=== PATIENT | female | born 1980 | race Hispanic/Latino ===

== ENCOUNTER 2022-06-13 20:29 | Emergency (ER) | payer OTHER ==
[~2022-06-13] VITALS: Ht 160 cm; Wt 71.7 kg
[2022-06-13 20:54] LABS: BASOPHILS % (AUTO) 0.3 % (0.0-5.0); EOSINOPHILS % (AUTO) 1.1 % (0.0-8.0); LYMPHOCYTES % (AUTO) 16.6 % (21.0-51.0); MEAN CORPUSCULAR HEMOGLOBIN 29.5 pg (27.0-33.0); MEAN CORPUSCULAR HGB CONC 35.2 g/dL (32.0-36.0); MEAN CORPUSCULAR VOLUME 83.7 fL (79-99); MONOCYTES % (AUTO) 6.9 % (3.0-13.0); NEUTROPHILS % (AUTO) 74.8 % (40.0-77.0); PLATELET COUNT (AUTO) 344 K/uL (130-400); RED BLOOD CELL COUNT(AUTO) 5.02 MIL/uL (4.00-5.50); RED CELL DISTRIBUTION WIDTH 11.9 % (11.0-15.5); WHITE BLOOD COUNT (AUTO) 16.4 K/uL (4.8-10.8)
[2022-06-13 20:55] LABS: APPEARANCE,URINE CLEAR (CLEAR); BILIRUBIN,URINE NEGATIVE (NEGATIVE); COLOR,URINE YELLOW (YELLOW); GLUCOSE, URINE (UA) 500 mg/dL (NEGATIVE); KETONES,URINE NEGATIVE (NEGATIVE); LEUKOCYTE ESTERASE ,URINE NEGATIVE (NEGATIVE); NITRATE,URINE NEGATIVE (NEGATIVE); OCCULT BLOOD,URINE NEGATIVE (NEGATIVE); PROTEIN,URINE NEGATIVE (NEGATIVE); UROBILINOGEN,URINE 0.2 mg/dL (0.2-1.0)
[2022-06-13 20:57] LABS: HCG,QUALITATIVE URINE NEGATIVE (NEGATIVE)
[2022-06-13 21:03] LABS: BACTERIA,URINE Few /HPF (None Seen); MUCUS,URINE Rare LPF (None Seen); RBC,URINE 0-1 /HPF (0-1); SQUAMOUS EPITHELIAL CELL,UR Few /HPF (0-2)
[2022-06-13 21:30] LABS: CREATININE 0.7 mg/dL (0.5-1.5); POTASSIUM 3.5 mmol/L (3.5-5.1)
[2022-06-13] MEDS ORDERED: LACTATED RINGERS 1000ML 1,000 ML IV ONE (21:30)
[2022-06-13] MEDS ORDERED: ONDANSETRON 4MG INJ IVP ONE (21:30)
[2022-06-13] MEDS ORDERED: MORPHINE 2 MG SYG IVP ONE (21:30)
[2022-06-13 21:35] LABS: TOTAL PROTEIN, SERUM 8.3 g/dL (6.0-8.3)
[2022-06-13] MEDS ORDERED: PROM25TA7 PO (23:24)
[2022-06-13] MEDS ORDERED: SULF1TAB42 PO (23:24)
[2022-06-13] MEDS ORDERED: DICY20TA2 PO (23:24)
[2022-06-13 23:34] VITALS: BP 115/71
== END 2022-06-13 23:54 | disposition home or self-care (01) ==
LOC: EDH 20:29
DX: K52.9 Noninfective gastroenteritis and colitis, unspecified (principal); E11.65 Type 2 diabetes mellitus with hyperglycemia; K76.0 Fatty (change of) liver, not elsewhere classified; D72.819 Decreased white blood cell count, unspecified; E78.00 Pure hypercholesterolemia, unspecified
CPT/HCPCS: 99284; 74176; 96374; 96361 ×2; 96375; 80053; 83690; 85025; 81001; 81025; 36415; J7120; J2405

== ENCOUNTER 2022-08-31 16:36 | Emergency (ER) | payer OTHER ==
[~2022-08-31] VITALS: Ht 160 cm; Wt 73.0 kg
[~2022-08-31 16:36] MED LIST: DICY20TA2 PO; PROM25TA7 PO; SULF1TAB42 PO
[2022-08-31 16:37] VITALS: BP 125/78
[2022-08-31 17:14] LABS: BASOPHILS % (AUTO) 0.3 % (0.0-5.0); EOSINOPHILS % (AUTO) 1.4 % (0.0-8.0); LYMPHOCYTES % (AUTO) 35.3 % (21.0-51.0); MEAN CORPUSCULAR HGB CONC 34.5 g/dL (32.0-36.0); MEAN CORPUSCULAR VOLUME 81.2 fL (79-99); MONOCYTES % (AUTO) 5.6 % (3.0-13.0); PLATELET COUNT (AUTO) 308 K/uL (130-400); RED BLOOD CELL COUNT(AUTO) 4.68 MIL/uL (4.00-5.50); RED CELL DISTRIBUTION WIDTH 12.4 % (11.0-15.5); WHITE BLOOD COUNT (AUTO) 9.5 K/uL (4.8-10.8)
[2022-08-31 17:26] LABS: CREATININE 0.7 mg/dL (0.5-1.5); POTASSIUM 3.4 mmol/L (3.5-5.1)
[2022-08-31 17:30] LABS: ALBUMIN 3.6 g/dL (3.5-5.0); TOTAL PROTEIN, SERUM 7.4 g/dL (6.0-8.3)
[2022-08-31] MEDS ORDERED: MORPHINE 4 MG SYG IVP ONE (18:00)
[2022-08-31] MEDS ORDERED: LIDOCAINE HCL 2% VISCOUS 15 ML UDCUP PO ONE (18:00)
[2022-08-31] MEDS ORDERED: 0.9%NACL 1000ML 1,000 ML IV ONE (18:00)
[2022-08-31] MEDS ORDERED: MAG/ALUM/SIMETH 30 ML UDCUP PO ONE (18:00)
[2022-08-31] MEDS ORDERED: ONDANSETRON 4MG INJ IVP ONE (18:00)
[2022-08-31 18:01] LABS: APPEARANCE,URINE CLEAR (CLEAR); BILIRUBIN,URINE NEGATIVE (NEGATIVE); COLOR,URINE COLORLESS (YELLOW); GLUCOSE, URINE (UA) 500 mg/dL (NEGATIVE); KETONES,URINE NEGATIVE (NEGATIVE); LEUKOCYTE ESTERASE ,URINE NEGATIVE Leu/uL (NEGATIVE); NITRATE,URINE NEGATIVE (NEGATIVE); OCCULT BLOOD,URINE NEGATIVE (NEGATIVE); PROTEIN,URINE NEGATIVE (NEGATIVE); UROBILINOGEN,URINE 0.2 mg/dL (0.2-1.0)
[2022-08-31 18:05] LABS: RBC,URINE 0-1 /HPF (0-1); SQUAMOUS EPITHELIAL CELL,UR FEW /HPF (0-2); WBC,URINE 0-1 /HPF (0-1)
[2022-08-31] MEDS ORDERED: IOHEXOL 350 MG/ML 100ML INFUS..BTL IV ONE (18:37)
== END 2022-08-31 20:23 | disposition home or self-care (01) ==
LOC: EDH 16:36
DX: R10.12 Left upper quadrant pain (principal); R10.13 Epigastric pain; K76.0 Fatty (change of) liver, not elsewhere classified; E11.9 Type 2 diabetes mellitus without complications; E78.00 Pure hypercholesterolemia, unspecified; Z79.899 Other long term (current) drug therapy; Z98.890 Other specified postprocedural states
CPT/HCPCS: 99285; 74177; 96374; 76705; 96375; 80053; 83690; 85025; 81001; 81025; 36415; J7030; J2405; J2270; Q9967

== ENCOUNTER 2022-09-01 09:14 | Emergency (ER) | payer OTHER ==
[~2022-09-01] VITALS: Ht 160 cm; Wt 72.6 kg
[2022-09-01 09:19] VITALS: BP 122/62
[2022-09-01] MEDS ORDERED: KETOROLAC 30MG VIAL (30MG/ML) IM STA (10:38)
== END 2022-09-01 11:37 | disposition home or self-care (01) ==
LOC: EDH 09:14
DX: G89.29 Other chronic pain (principal); R10.12 Left upper quadrant pain; M54.50 Low back pain, unspecified; E11.9 Type 2 diabetes mellitus without complications; Z98.890 Other specified postprocedural states; Z79.899 Other long term (current) drug therapy
CPT/HCPCS: 99283; 96372; J1885

== ENCOUNTER 2022-11-20 07:30 | Emergency (ER) | payer OTHER ==
[~2022-11-20] VITALS: Ht 162.6 cm; Wt 68.0 kg
[2022-11-20 07:33] VITALS: BP 134/81
[2022-11-20] MEDS ORDERED: CEPH500B PO (07:41)
[2022-11-20] MEDS ORDERED: CIPR7.5D OT (07:41)
== END 2022-11-20 07:49 | disposition home or self-care (01) ==
LOC: EDH 07:30
DX: H66.91 Otitis media, unspecified, right ear (principal); E11.9 Type 2 diabetes mellitus without complications